=== PATIENT | female | born 1990 | race American Indian/Alaskan Native ===

== ENCOUNTER 2018-11-06 09:40 | Emergency (ER) | payer OTHER ==
[2018-11-06 09:59] VITALS: BP 135/78
[2018-11-06] MEDS ORDERED: IBUPROFEN PO ONE (11:41)
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
[2018-11-06] MEDS ORDERED: NORCO 5/325 PO ONE (13:45)
== END 2018-11-06 13:58 | disposition home or self-care (01) ==
LOC: ED 09:40
DX: S16.1XXA Strain of muscle, fascia and tendon at neck level, initial encounter (principal); S39.012A Strain of muscle, fascia and tendon of lower back, initial encounter; V89.2XXA Person injured in unspecified motor-vehicle accident, traffic, initial encounter; Y93.89 Activity, other specified; Y92.410 Unspecified street and highway as the place of occurrence of the external cause; Y99.8 Other external cause status
CPT/HCPCS: 72040; 72070; 72100

== ENCOUNTER 2018-12-01 15:25 | Emergency (ER) | payer OTHER ==
--- NOTE | 2018-12-01 16:00 | Emergency Department Report ---
Chief Complaint: Headache Stated Complaint: OVER HEATED/HEADACHE Time Seen by Provider: 12/01/18 15:57 - HPI History of Present Illness: This is a 28 y.o. female that presents with LUQ pain and headache x 2 days. - ROS Review of Systems: LUQ pain and headache - Exam Vital Signs: Vital Signs 12/01/18 15:57 Temperature 99.1 F Pulse Rate 113 H Respiratory 18 Rate Blood Pressure 138/76 O2 Sat by Pulse 99 Oximetry MSE screening note: Focused history and physical exam performed. Due to findings the following was ordered: labs Fast track for further evaluation. ED Disposition for MSE Condition: Stable
[2018-12-01 16:35] LABS: Basophils % (Auto) 0.1 % (0.0-1.8); Eosinophils % (Auto) 0.1 % (0.0-4.3); Hematocrit 37.6 % (30.3-42.9); Hemoglobin 12.2 gm/dl (10.1-14.3); Lymphocytes # (Auto) 0.7 K/mm3 (1.2-5.4); Lymphocytes % (Auto) 8.4 % (13.4-35.0); Mean Corpuscular HGB Conc 33 % (30-34); Mean Corpuscular Volume 95 fl (79-97); Monocytes # (Auto) 0.5 K/mm3 (0.0-0.8); Monocytes % (Auto) 5.6 % (0.0-7.3); Platelet Count 308 K/mm3 (140-440); Red Blood Count 3.94 M/mm3 (3.65-5.03); Red Cell Distribution Width 13.9 % (13.2-15.2)
[2018-12-01 16:57] LABS: Alanine Aminotransferase 15 units/L (7-56); Albumin 4.4 g/dL (3.9-5); BUN/Creatinine Ratio 23; Blood Urea Nitrogen 14 mg/dL (7-17); Calcium 9.4 mg/dL (8.4-10.2); Hemolysis Index 1
[2018-12-01 17:04] LABS: Bilirubin,Urine NEG (Negative); Blood,Urine SM (Negative); Color,Urine Yellow (Yellow); Mucus,Urine 3+ /HPF
--- NOTE | 2018-12-01 19:11 | Emergency Department Report ---
ED Headache HPI - General Chief Complaint: Headache Stated Complaint: OVER HEATED/HEADACHE Time Seen by Provider: 12/01/18 15:57 - History of Present Illness Initial Comments: 28-year-old female presents to ED complaining throbbing aching type migraine headache and diarrhea that started last night. She states diarrhea was nonblo willi, watery stools. Patient does not recall eating anything unusual in the past couple of days. Patient states that her child was recently sick and she thinks she may have gotten sick from the child. She denies fevers/chills/blurry vision/chest pains or shortness of breath abdominal pain or vomiting Allergies/Adverse Reactions: Allergies No Known Allergies Allergy (Unverified 11/06/18 09:58) Home Medications: Ambulatory Orders Naproxen [Naprosyn] 375 mg PO Q12H PRN #14 tablet 11/06/18 Naproxen [Naprosyn] 500 mg PO BID #30 tablet 12/01/18 Ondansetron (Nf) [Zofran TAB] 8 mg PO Q8HR PRN #30 tablet 12/01/18 ED Review of Systems ROS: Stated complaint: OVER HEATED/HEADACHE Other details as noted in HPI Comment: All other systems reviewed and negative ED Past Medical Hx - Past Medical History Previous Medical History?: No - Surgical History Past Surgical History?: No - Social History Smoking Status: Never Smoker Substance Use Type: None - Medications Home Medications: Home Medications Medication Instructions Recorded Confirmed Last Taken Type Naproxen [Naprosyn] 375 mg PO Q12H PRN #14 tablet 11/06/18 Unknown Rx Naproxen [Naprosyn] 500 mg PO BID #30 tablet 12/01/18 Unknown Rx Ondansetron (Nf) [Zofran TAB] 8 mg PO Q8HR PRN #30 tablet 12/01/18 Unknown Rx ED Physical Exam - General Limitations: No Limitations General appearance: alert, in no apparent distress - Head Head exam: Present: atraumatic, normocephalic - Eye Eye exam: Present: normal appearance - ENT ENT exam: Present: mucous membranes moist - Neck Neck exam: Present: normal inspection, full ROM. Absent: tenderness, lymphadenopathy - Respiratory Respiratory exam: Present: normal lung sounds bilaterally. Absent: respiratory distress, wheezes, rales - Cardiovascular Cardiovascular Exam: Present: regular rate, normal rhythm. Absent: systolic murmur, diastolic murmur, rubs, gallop - GI/Abdominal GI/Abdominal exam: Present: soft, normal bowel sounds. Absent: distended, tenderness, guarding - Extremities Exam Extremities exam: Present: normal inspection - Back Exam Back exam: Present: normal inspection - Neurological Exam Neurological exam: Present: alert, oriented X3, CN II-XII intact, normal gait - Expanded Neurological Exam Expanded Patient oriented to: Present: person, place, time Speech: Present: fluid speech Cerebellar function: Finger to Nose: Normal, Heel to [place]: Normal Sensory exam: Upper Extremity Temperature: Normal, Lower Extremity Temperature: Normal Motor strength exam: RUE: 5, LUE: 5, RLE: 5, LLE: 5 DTR: knee (R): 2+, knee (L): 2+ Best Eye Response ([place]): (4) open spontaneously Best Motor Response ([place]): (6) obeys commands Best Verbal Response ([place]): (5) oriented Alise Total: 15 - Psychiatric Psychiatric exam: Present: normal affect, normal mood - Skin Skin exam: Present: warm, dry, intact, normal color. Absent: rash ED Course Vital Signs 12/01/18 15:57 Temperature 99.1 F Pulse Rate 113 H Respiratory 18 Rate Blood Pressure 138/76 O2 Sat by Pulse 99 Oximetry ED Medical Decision Making - Lab Data Result diagrams: 12/01/18 16:09 12/01/18 16:09 Laboratory Last Values WBC 8.1 K/mm3 (4.5-11.0) 12/01/18 16:09 RBC 3.94 M/mm3 (3.65-5.03) 12/01/18 16:09 Hgb 12.2 gm/dl (10.1-14.3) 12/01/18 16:09 Hct 37.6 % (30.3-42.9) 12/01/18 16:09 MCV 95 fl (79-97) 12/01/18 16:09 MCH 31 pg (28-32) 12/01/18 16:09 MCHC 33 % (30-34) 12/01/18 16:09 RDW 13.9 % (13.2-15.2) 12/01/18 16:09 Plt Count 308 K/mm3 (140-440) 12/01/18 16:09 Lymph % (Auto) 8.4 % (13.4-35.0) L 12/01/18 16:09 [place] % (Auto) 5.6 % (0.0-7.3) 12/01/18 16:09 Eos % (Auto) 0.1 % (0.0-4.3) 12/01/18 16:09 Baso % (Auto) 0.1 % (0.0-1.8) 12/01/18 16:09 Lymph # 0.7 K/mm3 (1.2-5.4) L 12/01/18 16:09 [place] # 0.5 K/mm3 (0.0-0.8) 12/01/18 16:09 Eos # 0.0 K/mm3 (0.0-0.4) 12/01/18 16:09 Baso # 0.0 K/mm3 (0.0-0.1) 12/01/18 16:09 Seg Neutrophils % 85.8 % (40.0-70.0) H 12/01/18 16:09 Seg Neutrophils # 7.0 K/mm3 (1.8-7.7) 12/01/18 16:09 Sodium 136 mmol/L (137-145) L 12/01/18 16:09 Potassium 3.4 mmol/L (3.6-5.0) L 12/01/18 16:09 Chloride 99.9 mmol/L (98-107) 12/01/18 16:09 Carbon Dioxide 24 mmol/L (22-30) 12/01/18 16:09 Anion Gap 16 mmol/L 12/01/18 16:09 BUN 14 mg/dL (7-17) 12/01/18 16:09 Creatinine 0.6 mg/dL (0.7-1.2) L 12/01/18 16:09 Estimated GFR > 60 ml/min 12/01/18 16:09 BUN/Creatinine Ratio 23 % 12/01/18 16:09 Glucose 126 mg/dL (65-100) H 12/01/18 16:09 Calcium 9.4 mg/dL (8.4-10.2) 12/01/18 16:09 Total Bilirubin 1.20 mg/dL (0.1-1.2) 12/01/18 16:09 AST 18 units/L (5-40) 12/01/18 16:09 ALT 15 units/L (7-56) 12/01/18 16:09 Alkaline Phosphatase 58 units/L (35-129) 12/01/18 16:09 Total Protein 8.6 g/dL (6.3-8.2) H 12/01/18 16:09 Albumin 4.4 g/dL (3.9-5) 12/01/18 16:09 Albumin/Globulin Ratio 1.0 % 12/01/18 16:09 Lipase 29 units/L (13-60) 12/01/18 16:09 HCG, Qual Negative (Negative) 12/01/18 16:09 Urine Color Yellow (Yellow) 12/01/18 16:31 Urine Turbidity Clear (Clear) 12/01/18 16:31 Urine pH 5.0 (5.0-7.0) 12/01/18 16:31 Ur Specific [place] 1.029 (1.003-1.030) 12/01/18 16:31 Urine Protein 100 mg/dl mg/dL (Negative) 12/01/18 16:31 Urine Glucose (UA) Neg mg/dL (Negative) 12/01/18 16:31 Urine Ketones 80 mg/dL (Negative) 12/01/18 16:31 Urine Blood Sm (Negative) 12/01/18 16:31 Urine Nitrite Neg (Negative) 12/01/18 16:31 Urine Bilirubin Neg (Negative) 12/01/18 16:31 Urine Urobilinogen 4.0 mg/dL (<2.0) 12/01/18 16:31 Ur Leukocyte Esterase Neg (Negative) 12/01/18 16:31 Urine WBC (Auto) 4.0 /HPF (0.0-6.0) 12/01/18 16:31 Urine RBC (Auto) 4.0 /HPF (0.0-6.0) 12/01/18 16:31 U Epithel Cells (Auto) 1.0 /HPF (0-13.0) 12/01/18 16:31 Urine Mucus 3+ /HPF 12/01/18 16:31 - Medical Decision Making 27 year female presents with migraine headache. All labs are within normal limits. Patient has no neurologic deficits. Patient had no diarrhea episodes in the ED. Discussed follow-up with primary care physician. Patient is alert and oriented 3 she is in no distress. Critical care attestation.: If time is entered above; I have spent that time in minutes in the direct care of this critically ill patient, excluding procedure time. ED Disposition Clinical Impression: Migraine headache without aura Disposition: - TO HOME OR SELFCARE Is pt being admited?: No Does the pt Need Aspirin: No Condition: Stable Instructions: Migraine Headache (ED), Gastroenteritis (ED) Additional Instructions: Make sure to follow up with the primary care physician as discussed. Take all your medications as you've been prescribed. If you have any worsening symptoms or develop new symptoms please return to ED immediately. Prescriptions: Naproxen [Naprosyn] 500 mg PO BID #30 tablet Ondansetron (Nf) [Zofran TAB] 8 mg PO Q8HR PRN #30 tablet PRN Reason: Nausea [facility] O[facility] [Primary Care Provider] - 3-5 Days Forms: Accompanied Note, Work/School Release Form(ED) Time of Disposition: 19:15
[2018-12-01 19:39] VITALS: BP 129/69
== END 2018-12-01 19:39 | disposition home or self-care (01) ==
LOC: ED 15:25
DX: G43.909 Migraine, unspecified, not intractable, without status migrainosus (principal); R19.7 Diarrhea, unspecified
CPT/HCPCS: 36415; 80053; 81001; 83690; 84703; 85025

== ENCOUNTER 2019-08-26 16:27 | Emergency (ER) | payer SELFPAY ==
[2019-08-26 16:44] VITALS: BP 112/75
--- NOTE | 2019-08-26 16:48 | Emergency Department Report ---
Chief Complaint: Headache Stated Complaint: FLU SX Time Seen by Provider: 08/26/19 16:41 - HPI History of Present Illness: pt presents to the ED with c/o URI symptoms that began two days ago +dry cough, +rhinorrhea, dry itchy sore throat states she had two episodes of emesis no fever no PMHx no allergies to meds vitals are normal normal oropharynx normal TMs and canals breath sounds are clear bilaterally, no w/r/r normal heart sounds No clinical signs or symptoms of influenza, pneumonia, pharyngitis, otitis media Symptoms and examination consistent with viral URI Discussed supportive care and symptomatic treatment with patient pt is presenting with a non medical emergency at this time, screening examination was performed advised pt to please increase your fluid intake over the next several days. may take tylenol or ibuprofen for any discomfort. may use flonase, mucinex, zyrtec over the counter. get plenty of rest. follow up with a primary care doctor in the next 2-3 days for reexamination. return to the emergency room for any new or worsening symptoms. - Exam Vital Signs: Vital Signs 08/26/19 16:42 Temperature 99.5 F Pulse Rate 80 Respiratory 18 Rate Blood Pressure 112/75 O2 Sat by Pulse 98 Oximetry MSE screening note: Focused history and physical exam performed. ED Disposition for MSE Clinical Impression: URI (upper respiratory infection) Qualifiers: URI type: unspecified URI Qualified Code(s): J06.9 - Acute upper respiratory infection, unspecified Disposition: Z-07 MED SCREENING EXAM-LEFT Is pt being admited?: No Does the pt Need Aspirin: No Condition: Stable Instructions: Upper Respiratory Infection (ED), Viral Syndrome (ED) Additional Instructions: please increase your fluid intake over the next several days. may take tylenol or ibuprofen for any discomfort. may use flonase, mucinex, zyrtec over the counter. get plenty of rest. follow up with a primary care doctor in the next 2-3 days for reexamination. return to the emergency room for any new or worsening symptoms. Referrals: IRISH DAMICO MD [Staff Physician] - 2-3 Days [facility] [Outside] - 2-3 [address] [facility] [Outside] - 2-3 Days Forms: Work/School Release Form(ED) Time of Disposition: 16:48 Print Language: DANISH
== END 2019-08-26 17:54 | disposition left against medical advice (07) ==
LOC: ED 16:27
DX: J06.9 Acute upper respiratory infection, unspecified (principal)

== ENCOUNTER 2021-11-11 04:54 | Emergency (ER) | payer OTHER ==
[2021-11-11 06:49] VITALS: BP 123/80
--- NOTE | 2021-11-11 07:18 | Emergency Department Report ---
HPI - General Chief Complaint: Allergic Reaction Time Seen by Provider: 11/11/21 07:05 ED Past Medical Hx - Past Medical History Previous Medical History?: No - Surgical History Past Surgical History?: No - Social History Smoking Status: Never Smoker Substance Use Type: None - Medications Home Medications: Home Medications Medication Instructions Recorded Confirmed Last Taken Type Naproxen [Naprosyn] 375 mg PO Q12H PRN #14 tablet 11/06/18 Unknown Rx Naproxen [Naprosyn] 500 mg PO BID #30 tablet 12/01/18 Unknown Rx Ondansetron (Nf) [Zofran TAB] 8 mg PO Q8HR PRN #30 tablet 12/01/18 Unknown Rx ED Review of Systems ROS: Stated complaint: ALLERGIC REACTION Other details as noted in HPI Physical Exam - Physical Exam Vital Signs: Vital Signs 11/11/21 05:05 Temperature 98.4 F Pulse Rate 76 Respiratory 18 Rate Blood Pressure 123/80 O2 Sat by Pulse 100 Oximetry ED Course Vital Signs 11/11/21 05:05 Temperature 98.4 F Pulse Rate 76 Respiratory 18 Rate Blood Pressure 123/80 O2 Sat by Pulse 100 Oximetry Critical care attestation.: If time is entered above; I have spent that time in minutes in the direct care of this critically ill patient, excluding procedure time. ED Disposition Condition: Stable
[2021-11-11] MEDS ORDERED: dexAMETHasone 4 MG/ML VIAL IM STA (07:26)
[2021-11-11] MEDS ORDERED: CETIRIZINE 10 MG TAB PO ONE (07:28)
[2021-11-11] MEDS ORDERED: FAMOTIDINE 20 MG TAB PO ONE (07:28)
--- NOTE | 2021-11-11 07:30 | Emergency Department Report ---
ED General Adult HPI - General Chief complaint: Allergic Reaction Stated complaint: ALLERGIC REACTION Time Seen by Provider: 11/11/21 07:05 Source: patient Mode of arrival: Ambulatory Limitations: No Limitations - History of Present Illness Initial comments: 31-year-old -[place] female patient reports facial swelling and itching starting yesterday. Patient states her symptoms began shortly after eating her bocce. She denies any known allergies to foods, medications, or new changes in her products. Patient states she took a Benadryl last night which did not seem to help. She denies any other medical problems. No difficulty with swallowing or trouble breathing per patient or chest pain -: Sudden - Related Data Previous Rx's Medication Instructions Recorded Last Taken Type Naproxen [Naprosyn] 375 mg PO Q12H PRN #14 tablet 11/06/18 Unknown Rx Naproxen [Naprosyn] 500 mg PO BID #30 tablet 12/01/18 Unknown Rx Ondansetron (Nf) [Zofran TAB] 8 mg PO Q8HR PRN #30 tablet 12/01/18 Unknown Rx Famotidine [Pepcid] 20 mg PO BID 7 Days #14 tablet 11/11/21 Unknown Rx Loratadine 10 mg PO QDAY 7 Days #7 tab 11/11/21 Unknown Rx Prednisone [predniSONE 10 mg 10 mg PO .TAPER #1 pack 11/11/21 Unknown Rx (6-Day Pack, 21 Tabs)] Triamcinolone 0.1% [Kenalog 0.1% 1 applic TP TID 3 Days #1 tube 11/11/21 Unknown Rx CREAM] Allergies Allergy/AdvReac Type Severity Reaction Status Date / Time No Known Allergies Allergy Verified 08/26/19 16:28 ED Review of Systems ROS: Stated complaint: ALLERGIC REACTION Other details as noted in HPI Constitutional: denies: diaphoresis, fever, malaise Respiratory: denies: cough, shortness of breath Cardiovascular: denies: chest pain Skin: rash Neurological: denies: headache ED Past Medical Hx - Past Medical History Previous Medical History?: No - Surgical History Past Surgical History?: No - Social History Smoking Status: Never Smoker Substance Use Type: None - Medications Home Medications: Home Medications Medication Instructions Recorded Confirmed Last Taken Type Naproxen [Naprosyn] 375 mg PO Q12H PRN #14 tablet 02/16/19 Unknown Rx Naproxen [Naprosyn] 500 mg PO BID #30 tablet 12/01/18 Unknown Rx Ondansetron (Nf) [Zofran TAB] 8 mg PO Q8HR PRN #30 tablet 12/01/18 Unknown Rx Famotidine [Pepcid] 20 mg PO BID 7 Days #14 tablet 11/11/21 Unknown Rx Loratadine 10 mg PO QDAY 7 Days #7 tab 11/11/21 Unknown Rx Prednisone [predniSONE 10 mg 10 mg PO .TAPER #1 pack 11/11/21 Unknown Rx (6-Day Pack, 21 Tabs)] Triamcinolone 0.1% [Kenalog 0.1% 1 applic TP TID 3 Days #1 tube 11/11/21 Unknown Rx CREAM] ED Physical Exam - General Limitations: No Limitations General appearance: alert, in no apparent distress - Head Head exam: Present: atraumatic, normocephalic - Eye Eye exam: Present: EOMI. Absent: scleral icterus - ENT ENT exam: Present: normal exam, normal orophraynx - Neck Neck exam: Present: normal inspection, full ROM - Neurological Exam Neurological exam: Present: alert, oriented X3, normal gait - Psychiatric Psychiatric exam: Present: normal affect - Skin Skin exam: Present: warm, dry, intact, normal color, rash (Concentric swelling of the face noted that is mild with mild swelling to the eyelids bilaterally; overlying skin is dry and nonerythemic) ED Course Vital Signs 11/11/21 05:05 Temperature 98.4 F Pulse Rate 76 Respiratory 18 Rate Blood Pressure 123/80 O2 Sat by Pulse 100 Oximetry ED Medical Decision Making - Medical Decision Making 31-year-old -[place] female patient reports facial swelling and itching starting yesterday. Patient states her symptoms began shortly after eating her bocce. She denies any known allergies to foods, medications, or new changes in her products. Patient states she took a Benadryl last night which did not seem to help. She denies any other medical problems. No difficulty with swallowing or trouble breathing per patient or chest pain Patient given Decadron here in ED. Will discharge home with Claritin, Pepcid, loratadine, and triamcinolone cream. Recommend she follows up with PCP in 3 to 5 days. Discussed in detail signs and symptoms that should prompt immediate return to emergency department with patient who verbalized understanding Critical care attestation.: If time is entered above; I have spent that time in minutes in the direct care of this critically ill patient, excluding procedure time. ED Disposition Clinical Impression: Allergic reaction Disposition: HOME / SELF CARE / HOMELESS Is pt being admited?: No Condition: Stable Instructions: Contact Dermatitis, Food Allergy Prescriptions: Triamcinolone 0.1% [Kenalog 0.1% CREAM] 1 applic TP TID 3 Days #1 tube Loratadine 10 mg PO QDAY 7 Days #7 tab Famotidine [Pepcid] 20 mg PO BID 7 Days #14 tablet Prednisone [predniSONE 10 mg (6-Day Pack, 21 Tabs)] 10 mg PO .TAPER #1 pack Referrals: PRIMARY CARE, [Referring] - 3-5 Days [facility] [Provider Group] - 3-5 Days Forms: Work/School Release Form(ED)
== END 2021-11-11 08:38 | disposition home or self-care (01) ==
LOC: ED 04:54
DX: T78.40XA Allergy, unspecified, initial encounter (principal); X58.XXXA Exposure to other specified factors, initial encounter
CPT/HCPCS: 96372; 99282; J1100